=== PATIENT | female | born 1940 | race Caucasian/White ===

== ENCOUNTER 2024-04-16 13:16 | Emergency (ER) | payer MEDICARE, SELFPAY ==
--- NOTE | ~2024-04-16 | CT_ITS ---
EXAMINATION: CT head/brain wo IV con, CT facial bones wo IV con, CT cervical spine wo IV con INDICATION INFORMATION: Fall and hit face, brain bleed. COMPARISON: None TECHNIQUE: Separate noncontrast CT examinations of the head, face, and cervical spine were performed. Coronal and sagittal images were created for each examination at the technologist workstation. This CT examination was performed using dose optimization techniques as appropriate, variously including the following: *Automated exposure control *Adjustment of mA and/or kV according to patient size (this includes techniques or standardized protocols for targeted exams where dose is matched to indication/reason for exam; i.e. extremities or head) *Use of iterative reconstruction technique DLP: 1131 mGy-cm FINDINGS: Head: No acute osseous or soft tissue abnormality. Mild opacification of the left mastoid air cells. There is no evidence of acute intracranial hemorrhage or territorial infarction. No abnormal mass effect or midline shift is seen. Bryan to white matter differentiation is well preserved. No extra-axial fluid collections are identified. No hydrocephalus. Proportional prominence of the ventricles and sulcal spaces is consistent with moderate volume loss with frontoparietal predominance. Patchy periventricular and deep white matter hypoattenuation is consistent with mild small vessel ischemic changes. Mild scattered intracranial calcific atherosclerosis. Facial Bones: Minimally displaced bilateral nasal bone fractures, more pronounced on the right. Chronic appearing, healed osseous deformities of the bilateral mandibular condyles near the temporal mandibular joints, right greater than left. The paranasal sinuses are well aerated. Partially edentulous. Small periapical lucency about the right central mandibular incisor (series 6, image 55). Bilateral lens prostheses in place. The orbits are unremarkable in appearance. Cervical spine: There is no evidence of acute cervical spine fracture. Vertebral bodies remain normal in height. There is 2 mm of anterolisthesis of C4 on C5.. Alignment otherwise preserved. Multilevel loss of disc space height, most pronounced at C5-C6, where it is moderate with a small posteriorly projecting disc osteophyte complex. Moderate diffuse facet arthropathy bilaterally. No pre- or paravertebral soft tissue abnormality is identified. Visualized portions of the lung apices are unremarkable. The thyroid gland is unremarkable. CT/CT cervical spine wo IV con IMPRESSION: 1. Minimally displaced bilateral nasal bone fractures, more pronounced on the right. No other facial fractures identified. 2. No acute traumatic abnormality of the brain or cervical spine. 3. Moderate cerebral volume loss and mild chronic microvascular white matter disease. 4. Mild multilevel degenerative cervical spondylosis, most pronounced at C5-C6.
[2024-04-16 13:22] VITALS: BP 165/81; PULSE 109; RESP 18; TEMP 37.1; O2SAT 100; BMI 21.0
--- NOTE | 2024-04-16 13:28 | ED.GENADULT ---
HPI - General Adult General Chief complaint: Fall Stated complaint: Fall Time Seen by Provider: 04/16/24 13:35 Source: patient and family Mode of arrival: ambulatory Limitations: no limitations History of Present Illness ED Provider: JESENIA DON PA-C HPI narrative: 83-year-old female with no significant pmhx presents to the ED today from home for evaluation after mechanical fall occurring this morning. Patient reports that while descending stairs, she tripped and fell forward, striking her face on her floor. Denies LOC. Denies anticoagulation. She was able to stand up and ambulate herself. She admits she was wearing her glasses at the time she struck her face. Endorses laceration to the bridge of her nose along with bruising. She denies any preceding symptoms of dizziness, headache, vision changes, chest pain, palpitations. Her only complaint at present is nasal laceration. Denies headache, nasal pain, epistaxis. Is unsure of tetanus status. Her two daughters are at bedside to assist with history. Related Data Previous Rx's ?Medication ?Instructions ?Recorded amoxicillin 875 mg-potassium 1 tab PO Q12H 7 days #14 tabs 04/16/24 clavulanate 125 mg tablet Allergies Allergy/AdvReac Type Severity Reaction Status Date / Time No Known Allergies Allergy Verified 04/16/24 13:25 Review of Systems Review of Systems: Constitutional: No fever, chills, fatigue, night sweats, weight changes ENT/Mouth: No ear pain, hearing loss, nasal congestion, sinus pain, rhinorrhea, sore throat Eyes: No eye pain, swelling, redness, vision changes, discharge Cardio: No chest pain, palpitations, ANDREA, orthopnea, peripheral edema Pulm: No SOB, cough, sputum, wheezing, dyspnea, hemoptysis GI: No nausea, vomiting, hematemesis, abdominal pain, diarrhea, constipation, hematochezia, melena : No irregular bleeding, dysuria, frequency, urgency, hesitancy, hematuria, flank pain, urinary flow changes, urinary incontinence or retention MSK: No back pain, neck pain, joint pain, myalgias Skin: No lesions, rashes, +nasal abrasion Neuro: No weakness, numbness, paresthesias, LOC, dizziness, headache Psych: No anxiety/panic, depression, SI/HI, AH/VH All other systems reviewed and are negative. PMFSH Past Medical History Attestation statement: The following information was validated with the patient. Source: old records reviewed and nursing notes reviewed Social History Social History Smoked in Last 30 Days: No Use of substances other than those prescribed or required for medical reasons: No Advance Directives: No Advance Directives Information Provided: Yes Physical Exam ED Vital Signs: Vital Signs - 24 hr 04/16/24 13:22 04/16/24 14:00 04/16/24 15:28 Temperature 98.8 F 97.9 F 97.6 F Pulse Rate 109 H 68 68 Respiratory Rate 18 18 16 Blood Pressure 165/81 H 161/80 H 160/69 H Pulse Oximetry 100 100 96 Oxygen Delivery Method Room Air Room Air BMI result Body Mass Index 21.0 Patient slightly hypertensive, vitals otherwise wnl. Const General: cooperative, healthy appearing, comfortable and no acute distress Orientation/consciousness: patient oriented x3 Limitations: no limitations HENMT Head: Yes No palpable skull fracture present, No Sandhu's sign, No raccoon eyes and Yes periorbital ecchymosis Face images: 1. small, superficial, 0.5cm linear laceration noted to left nasal bridge. no noted deformity no nose. ecchymosis noted to either side of nasal bridge. no palpable tenderness or deformity. no epistaxis. no septal hematoma. Eyes General: appearance normal, both eyes and all related structures Pupils: Equal, round and reactive pupils present EOM: EOMs intact bilaterally (no entrapment or pain) Direct Ophthalmoscopy: normal light reflex and anterior chamber normal Neck Other: No cervical midline spinous tenderness or step off deformity Neck: Yes normal visual inspection Resp Effort & Inspection: normal respiratory effort and able to speak in complete sentences Auscultation: clear to auscultation bilaterally Cardio Rate: regular rate Rhythm: regular rhythm Neuro General: patient oriented x3 Cranial nerves: Yes Equal, round and reactive pupils present Course Course Course Narrative: rRME: done by LEOPOLDO Guerra: 83-year-old female presents to ED for fall mechanical fall. Patient states was going down the stairs and tripped and fell onto her face. Patient denies feeling any dizziness, headache, chest pain, abdominal pain before falling. Physical exam positive for nasal abrasion and ecchymosis near bilateral lower eyelids. Chest abdomen back extremities negative for signs of trauma. Head CT scan cervical spine CT CT facial states pain ordered. Reevaluation(s) Reevaluation #1: Laceration along nasal bridge cleaned well and repaired with dermabond and Steri-Strips. No active bleeding. Tdap booster updated. CT head/brain without intracranial bleed. CT cervical spine without fracture or subluxation. CT facial bones showing minimally displaced bilateral nasal bone fractures, more pronounced on the right, no other facial fractures identified. > I discussed all imaging results with patient and her daughters. Given patient has laceration to nasal bridge, will treat as open fracture. Augmentin sent to pharmacy for treatment. Patient denies any pain at present. Advised to take Tylenol at home as needed. I also advised ENT follow-up. Will provide patient with referral to [facility] of [facility]. They verbalized understanding. > at this time I feel patient is safe for discharge home. Patient has remained stable throughout ED visit today. Discussed worrisome signs and symptoms and when to return to the ED. All questions answered at this time. Patient is agreeable with disposition and stable for discharge. Medications Administered Discontinued Medications Generic Name Dose Route Start Last Admin Trade Name Freq PRN Reason Stop Dose Admin Diphtheria/Tetanus/Acell Pertussis 0.5 ml 04/16/24 14:17 04/16/24 14:40 Diphth,Pertus(Acell),Tet Adult 0.5 Ml Syringe IM 04/16/24 14:18 0.5 ml .ONCE ONE Administration Procedures Laceration Laceration 1: Site: face Side (If applicable): right Size (cm): 0.5 Description: linear Depth: simple, single layer Pre-repair: wound explored, irrigated extensively and deep structures intact Skin layer closed with: other (dermabond) Medical Decision Making Medical Decision Making MDM Narrative: 83-year-old female with no significant pmhx presents to the ED today from home for evaluation after mechanical fall occurring this morning. On facial exam, small, superficial, 0.5cm linear laceration noted to left nasal bridge. no noted deformity no nose. ecchymosis noted to either side of nasal bridge. no palpable tenderness or deformity. no epistaxis. no septal hematoma. Exam is nonfocal. There is no palpable skull fracture. No midline cervical spinous tenderness or step-off deformity. Full ROM to C-spine intact. Ambulating with steady gait. Differential diagnosis includes abrasion, laceration, fracture, concussion. Unlikely skull fracture, TBI, ICH, CVA/TIA, septal hematoma. Plan for laceration repair, tdap booster, imaging, and re-evaluation. Differential Diagnosis Differential Diagnoses: The differential diagnosis associated with the presentation includes as above. Admission/Observation Not indicated. Independent Interpretation I performed an independent interpretation of an: CT Scan Interpretation: CT head/brain without bleed, agree with radiologist's interpretation. CT cervical spine without fracture or subluxation, agree with radiologist's interpretation. CT facial bones with bilateral nasal bone fractures, agree with radiologist's interpretation. Radiology Impression Discussion of test interpretation with radiology: I have reviewed the radiologist's reading. Radiologist Impression: EXAMINATION: CT head/brain wo IV con, CT facial bones wo IV con, CT cervical spine wo IV con INDICATION INFORMATION: Fall and hit face, brain bleed. COMPARISON: None TECHNIQUE: Separate noncontrast CT examinations of the head, face, and cervical spine were performed. Coronal and sagittal images were created for each examination at the technologist workstation. This CT examination was performed using dose optimization techniques as appropriate, variously including the following: *Automated exposure control *Adjustment of mA and/or kV according to patient size (this includes techniques or standardized protocols for targeted exams where dose is matched to indication/reason for exam; i.e. extremities or head) *Use of iterative reconstruction technique DLP: 1131 mGy-cm FINDINGS: Head: No acute osseous or soft tissue abnormality. Mild opacification of the left mastoid air cells. There is no evidence of acute intracranial hemorrhage or territorial infarction. No abnormal mass effect or midline shift is seen. Bryan to white matter differentiation is well preserved. No extra-axial fluid collections are identified. No hydrocephalus. Proportional prominence of the ventricles and sulcal spaces is consistent with moderate volume loss with frontoparietal predominance. Patchy periventricular and deep white matter hypoattenuation is consistent with mild small vessel ischemic changes. Mild scattered intracranial calcific atherosclerosis. Facial Bones: Minimally displaced bilateral nasal bone fractures, more pronounced on the right. Chronic appearing, healed osseous deformities of the bilateral mandibular condyles near the temporal mandibular joints, right greater than left. The paranasal sinuses are well aerated. Partially edentulous. Small periapical lucency about the right central mandibular incisor (series 6, image 55). Bilateral lens prostheses in place. The orbits are unremarkable in appearance. Cervical spine: There is no evidence of acute cervical spine fracture. Vertebral bodies remain normal in height. There is 2 mm of anterolisthesis of C4 on C5.. Alignment otherwise preserved. Multilevel loss of disc space height, most pronounced at C5-C6, where it is moderate with a small posteriorly projecting disc osteophyte complex. Moderate diffuse facet arthropathy bilaterally. No pre- or paravertebral soft tissue abnormality is identified. Visualized portions of the lung apices are unremarkable. The thyroid gland is unremarkable. CT/CT head/brain wo IV con IMPRESSION: 1. Minimally displaced bilateral nasal bone fractures, more pronounced on the right. No other facial fractures identified. 2. No acute traumatic abnormality of the brain or cervical spine. 3. Moderate cerebral volume loss and mild chronic microvascular white matter disease. 4. Mild multilevel degenerative cervical spondylosis, most pronounced at C5-C6. Independent Historian Clinical information obtained from an independent historian. History obtained from or confirmed by: Other (daughters) External Record Review External record reviewed: Inpatient record Prescription Management I considered prescription management with: Antibiotic (Augmentin) Social Determinants Patient?s care significantly limited by Social Determinants of Health including: Other Social Determinant of Health Critical Care Time Critical Care Time Critical Care Time: No Discharge Plan Discharge Clinical Impression: Open fracture nasal bone Laceration of nose Qualifiers: Encounter type: initial encounter Qualified Code(s): S01.21XA - Laceration without foreign body of nose, initial encounter Patient Disposition: Home, Self-Care Instructions: Nasal Fracture (ED), Skin Adhesive Care (ED), Fall Prevention (ED), Steristrips (ED), Facial Laceration (ED) Additional Instructions: The CT scan of your head/brain does not demonstrate bleed. The CT scan of your neck shows degenerative changes without acute fracture. The CT scan of your facial bone shows bilateral nasal bone fractures. Please follow-up with ENT regarding your nasal bone fractures. Call their office tomorrow morning to schedule an appointment. The laceration to your nasal bridge was repaired with skin glue and steri-strips today. Please keep this clean, dry, and intact. Do not wash the area for 24 hours. Augmentin is an antibiotic that has been sent to your pharmacy. Take this as prescribed for the next 7 days. Do not stop taking this early or skip any doses. You may take tylenol at home as needed for pain. Your tetanus vaccination was updated today. Return with new or worsening symptoms. In the case of an emergency call 911. [facility]: [address], [facility] [id number] Prescriptions: New amoxicillin-pot clavulanate 875-125 mg tablet 1 tab PO Q12H 7 Days Qty: 14 0RF Interventions: ED Discharge Assessment Last Done: 04/16/24 15:28 Discharge Date/Time: 04/16/24 15:29 Print Language: [place]
[2024-04-16 14:00] VITALS: BP 161/80; PULSE 68; RESP 18; TEMP 36.6; O2SAT 100
[2024-04-16] MEDS: Diphth,Pertus(ACell),Tet Adult 0.5 ML SYRINGE IM (14:40)
--- NOTE | 2024-04-16 14:52 | PC.NURSE ---
Patient observed leaving room, walking hallways asking any staff member where's my CT results, I already know what they say . Explained to patient that CT results can take some time to result, expectations should be adjusted to have CT read 2 hours at minimum after scan. Patient upset about this realization. Patient and family thanked for their patience.
[2024-04-16 15:28] VITALS: BP 160/69; PULSE 68; RESP 16; TEMP 36.4; O2SAT 96
== END 2024-04-16 15:29 | disposition home or self-care (01) ==
PROVIDERS: Emergency Provider Emergency Medicine; PCP Internal Medicine
DX: S02.2XXA Fracture of nasal bones, initial encounter for closed fracture (principal); S01.21XA Laceration without foreign body of nose, initial encounter; R51.9 Headache, unspecified; W10.9XXA Fall (on) (from) unspecified stairs and steps, initial encounter; Y93.9 Activity, unspecified; Y92.9 Unspecified place or not applicable; Y99.8 Other external cause status; Z23 Encounter for immunization
CPT/HCPCS: 70450; 70486; 72125; 90471; 90715; 99284